=== PATIENT | female | born 1960 | race Caucasian/White ===

== ENCOUNTER 2018-02-06 07:40 | Day surgery (SDC) | payer BC ==
[2018-01-30 15:33] VITALS: BMI 18.9
[~2018-02-06 07:40] MED LIST: LACTATED RINGERS 1,000 ML IV SCH; LIDOCAINE 1% 20 ML VIAL (10MG/ML) FOR IV START INTRADERMA PRN
[2018-02-06 08:09] VITALS: RESP 16; TEMP 98.5
[2018-02-06 08:19] LABS: Glucose,Whole Blood 68 mg/dL (75-99)
--- NOTE | 2018-02-06 08:28 | P.GSHP ---
History of Present Illness H&P Date: 02/06/18 CHIEF COMPLAINT: GERD HISTORY OF PRESENT ILLNESS: The patient is a 58-year-old female who presents reports gastroesophageal reflux disease. Upper endoscopy was offered for further evaluation and management. PAST MEDICAL HISTORY: Please see list. PAST SURGICAL HISTORY: Please see list. MEDICATIONS: Please see list. ALLERGIES: Please see list. SOCIAL HISTORY: No illicit drug use FAMILY HISTORY: No reports of Crohn disease or ulcerative colitis. REVIEW OF ORGAN SYSTEMS: CONSTITUTIONAL: No reports of fevers or chills. GI: Denies any blood in stools or constipation. PHYSICAL EXAM: VITAL SIGNS: Stable GENERAL: Well-developed and pleasant in no acute distress. HEENT: No scleral icterus. Extraocular movements grossly intact. Moist buccal mucosa. NECK: Supple without lymphadenopathy. CHEST: Unlabored respirations. Equal bilateral excursions. CARDIOVASCULAR: Regular rate and rhythm. Distal 2+ pulses. ABDOMEN: Soft, nondistended. MUSCULOSKELETAL: No clubbing, cyanosis, or edema. ASSESSMENT: 1. Gastroesophageal reflux disease PLAN: 1. Recommend proceeding with an upper endoscopy Past Medical History Past Medical History: GERD/Reflux, Osteoarthritis (OA), Thyroid Disorder Additional Past Medical History / Comment(s): HYPOGLYCEMIA History of Any Multi-Drug Resistant Organisms: None Reported Past Surgical History: Breast Surgery, Cholecystectomy, Hysterectomy, Joint Replacement Additional Past Surgical History / Comment(s): LAP EXAM, ARTHROSCOPIC RIGHT KNEE , BILATERAL LEGS-OSTEOTOMY, RIGHT ELBOW, COLECTOMY Past Anesthesia/Blood Transfusion Reactions: Postoperative Nausea & Vomiting ( PONV) Smoking Status: Never smoker - Past Family History Father Family Medical History: Cancer Medications and Allergies Home Medications Medication Instructions Recorded Confirmed Type Levothyroxine Sodium [Synthroid] 50 mcg PO SUMOTUWETHFR 04/09/15 02/06/18 History cycloSPORINE 0.05% OPHTH SOLN 1 drops BOTH EYES BID 04/09/15 02/06/18 History [Restasis 0.05% Ophth Soln] Acetaminophen/Diphenhydramine 1 tab PO HS 01/30/18 02/06/18 History [Tylenol PM 500-25mg] Levothyroxine Sodium [Synthroid] 75 mcg PO SA 01/30/18 02/06/18 History Lutein 25 mg PO DAILY 01/30/18 02/06/18 History Allergies Allergy/AdvReac Type Severity Reaction Status Date / Time latex Allergy Swelling Verified 02/06/18 07:57 lubiprostone [From Amitiza] Allergy Rapid Verified 02/06/18 07:57 Heart Rate oxycodone HCl [From Percocet] Allergy Rash/Hives Verified 02/06/18 07:57 propranolol HCl Allergy Rash/Hives, Verified 02/06/18 07:57 [From Inderal LA] SWELLING OF FACE racephedrine Allergy Anaphylaxis Verified 02/06/18 07:57 celecoxib [From Celebrex] AdvReac GI BLEEDING Verified 02/06/18 07:57 meperidine HCl [From Demerol] AdvReac Abdominal Verified 02/06/18 07:57 Pain rofecoxib [From Vioxx] AdvReac GI BLEEDING Verified 02/06/18 07:57 valdecoxib [From Bextra] AdvReac GI BLEEDING Verified 02/06/18 07:57 Surgical - Exam Vital Signs Temp Pulse Resp BP Pulse Ox 98.5 F 80 16 136/78 100 02/06/18 08:04 02/06/18 08:04 02/06/18 08:04 02/06/18 08:04 02/06/18 08:04 Results - Labs Abnormal Lab Results - Last 24 Hours (Table) 02/06/18 Range/Units 08:12 POC Glucose (mg/dL) 68 L (75-99) mg/dL
[2018-02-06] MEDS ORDERED: PROPOFOL 10 MG/ML 20 ML VIAL IV ONE (08:54)
--- NOTE | 2018-02-06 09:24 | P.PCN ---
Date of Procedure: 02/06/18 Description of Procedure: PREOPERATIVE DIAGNOSIS: Gastroesophageal reflux disease. POSTOPERATIVE DIAGNOSIS: Gastritis. Gastroesophageal reflux disease. OPERATION: Esophagogastroduodenoscopy with biopsies along antrum. SURGEON: Nikki Parry MD ANESTHESIA: MAC. INDICATIONS: The patient is a 58-year-old female who presents with a history of reflux disease. Benefits and risks of the procedure were described. Informed consent was obtained. DESCRIPTION: The patient was brought into the endoscopy suite and laid in the left lateral decubitus position. An Olympus gastroscope was passed along the posterior oropharynx down to the distal esophagus where the squamocolumnar junction was encountered at 40 cm from the incisors. The stomach was entered and no bile reflux was found. Additional findings are listed below. Biopsies with cold forceps were obtained of the antrum. The first through third portion of the duodenum was examined and unremarkable. Retroflexion of the scope confirmed Hill grade 2 lower esophageal valve. The squamocolumnar junction demonstrated LA grade A erosive esophagitis. The stomach was desufflated. The patient tolerated the procedure well. FINDINGS: Squamocolumnar junction 40 cm from the incisors. Diaphragmatic hiatus at 40 cm. Hill grade 2 lower esophageal valve. LA grade A erosive esophagitis. No active duodenitis. Active gastritis with recent bleed, superficial RECOMMENDATIONS: Upper endoscopy as needed. Plan - Discharge Summary New Discharge Prescriptions: No Action Levothyroxine Sodium [Synthroid] 50 mcg PO SUMOTUWETHFR cycloSPORINE 0.05% OPHTH SOLN [Restasis 0.05% Ophth Soln] 1 drops BOTH EYES BID Levothyroxine Sodium [Synthroid] 75 mcg PO SA Acetaminophen/Diphenhydramine [Tylenol PM 500-25mg] 1 tab PO HS Lutein 25 mg PO DAILY Discharge Medication List Levothyroxine Sodium [Synthroid] 50 mcg PO SUMOTUWETHFR 04/09/15 [History] cycloSPORINE 0.05% OPHTH SOLN [Restasis 0.05% Ophth Soln] 1 drops BOTH EYES BID 04/09/15 [History] Acetaminophen/Diphenhydramine [Tylenol PM 500-25mg] 1 tab PO HS 01/30/18 [ History] Levothyroxine Sodium [Synthroid] 75 mcg PO SA 01/30/18 [History] Lutein 25 mg PO DAILY 01/30/18 [History] Follow up Appointment(s)/Referral(s): Nikki Parry MD [STAFF PHYSICIAN] - As Needed Patient Instructions/Handouts: *[facility] - (Anesthesia) Endoscopy Discharge Instructions, Gastritis (DC), Upper Endoscopy (DC)
[2018-02-06 09:45] VITALS: BP 112/78; PULSE 69
== END 2018-02-06 09:49 | disposition home or self-care (01) ==
LOC: ORWHC2ENDO 07:40
PROVIDERS: ATTEND Surgery Plastic and Reconstructive Surgery
DX: K22.10 Ulcer of esophagus without bleeding (principal); K29.50 Unspecified chronic gastritis without bleeding; K21.9 Gastro-esophageal reflux disease without esophagitis; M19.90 Unspecified osteoarthritis, unspecified site; E07.9 Disorder of thyroid, unspecified; Z79.890 Hormone replacement therapy; Z79.899 Other long term (current) drug therapy; Z88.5 Allergy status to narcotic agent; Z88.8 Allergy status to other drugs, medicaments and biological substances; Z88.6 Allergy status to analgesic agent; Z91.040 Latex allergy status
CPT/HCPCS: 88305; 43239; J2704

== ENCOUNTER 2019-05-30 11:48 | Day surgery (SDC) | payer BC ==
[2019-05-23 09:38] VITALS: BMI 19.6
--- NOTE | 2019-05-29 17:04 | P.GSHP ---
History of Present Illness H&P Date: 05/30/19 CHIEF COMPLAINT: Incisional hernia. HISTORY OF PRESENT ILLNESS: The patient is a 59-year-old female who presents with a history of swelling along the lower abdomen. Findings were consistent with possible incisional hernia. Now she presents for further evaluation and management. PAST MEDICAL HISTORY: Please see list. PAST SURGICAL HISTORY: Please see list. MEDICATIONS: Please see list. ALLERGIES: Please see list. SOCIAL HISTORY: No illicit drug use FAMILY HISTORY: No reports of Crohn disease or ulcerative colitis. REVIEW OF ORGAN SYSTEMS: CONSTITUTIONAL: No reports of fevers or chills. GI: Denies any blood in stools or constipation. PHYSICAL EXAM: VITAL SIGNS: Stable GENERAL: Well-developed pleasant female in no acute distress. HEENT: No scleral icterus. Extraocular movements grossly intact. Moist buccal mucosa. NECK: Supple without lymphadenopathy. CHEST: Unlabored respirations. Equal bilateral excursions. CARDIOVASCULAR: Regular rate and rhythm. Distal 2+ pulses. ABDOMEN: Soft, nondistended. Tender along the lower abdomen. MUSCULOSKELETAL: No clubbing, cyanosis, or edema. ASSESSMENT: 1. Ventral hernia. PLAN: 1. Recommend proceeding with robotic ventral hernia repair with mesh. 2. Benefits and risks of surgical intervention was discussed including possibility of open technique. 3. DVT prophylaxis. 4. Antibiotic prophylaxis. Past Medical History Past Medical History: GERD/Reflux, Osteoarthritis (OA), Thyroid Disorder Additional Past Medical History / Comment(s): HYPOGLYCEMIA, hx of colonic inertia History of Any Multi-Drug Resistant Organisms: None Reported Past Surgical History: Breast Surgery, Cholecystectomy, Hysterectomy, Orthopedic Surgery Additional Past Surgical History / Comment(s): LAP EXAM, ARTHROSCOPIC RIGHT KNEE, rotational BILATERAL LEGS-OSTEOTOMY, carlos alberto ELBOW, benign rt breast bx, COLECTOMY, bursectomy left hip Past Anesthesia/Blood Transfusion Reactions: Postoperative Nausea & Vomiting (PONV) Smoking Status: Never smoker - Past Family History Father Family Medical History: Cancer Medications and Allergies Home Medications Medication Instructions Recorded Confirmed Type cycloSPORINE 0.05% OPHTH SOLN 1 drops BOTH EYES BID 04/09/15 05/23/19 History [Restasis 0.05% Ophth Soln] C,E,Zinc,Copper 11/Mtsal0e/Lut 1 tab PO DAILY 05/23/19 05/23/19 History [Ocuvite Adult 50 Plus Softgel] Iron Polysaccharide Complex 150 mg PO DAILY 05/23/19 05/23/19 History [Ferrex 150] Levothyroxine Sodium [Euthyrox] 50 mcg PO SUMOTUWETHFR 05/23/19 05/23/19 History Levothyroxine Sodium [Euthyrox] 75 mcg PO SA 05/23/19 05/23/19 History Remfresh 1 tab PO HS 05/23/19 History Tretinoin Microspheres [Retin-A 1 applic TOPICAL DAILY 05/23/19 05/23/19 History Micro 0.1%] Allergies Allergy/AdvReac Type Severity Reaction Status Date / Time latex Allergy Swelling Verified 05/23/19 09:22 lubiprostone [From Amitiza] Allergy Rapid Verified 05/23/19 09:22 Heart Rate oxycodone HCl [From Percocet] Allergy Rash/Hives Verified 05/23/19 09:22 propranolol HCl Allergy Rash/Hives, Verified 05/23/19 09:22 [From Inderal LA] SWELLING OF FACE racephedrine Allergy Anaphylaxis Verified 05/23/19 09:22 celecoxib [From Celebrex] AdvReac GI BLEEDING Verified 05/23/19 09:22 meperidine HCl [From Demerol] AdvReac Abdominal Verified 05/23/19 09:22 Pain rofecoxib [From Vioxx] AdvReac GI BLEEDING Verified 05/23/19 09:22 valdecoxib [From Bextra] AdvReac GI BLEEDING Verified 05/23/19 09:22
[~2019-05-30 11:48] MED LIST changes: +ACETAMINOPHEN TAB 325 MG TAB PO STA; +DEXAMETHASONE SOD PHOSPHATE 10 MG/ML 1 ML VIAL IV ONE; +GABAPENTIN 300 MG CAP PO STA; +HEPARIN SODIUM,PORCINE 5,000 UNIT/ML 1 ML VIAL SQ ONE; +HYDROmorphone 0.5 MG/0.5 ML SYRINGE IVP PRN; +MIDAZOLAM 2 MG/2 ML VIAL IV PRN; +ONDANSETRON 4 MG/2 ML VIAL IVP ONE; +fentaNYL (PF) 50 MCG/ML 2 ML AMP IVP PRN
[2019-05-30 12:23] VITALS: RESP 16
[2019-05-30 12:26] LABS: Basophils % (A) 0 %; Eosinophils # (A) 0.1 k/uL (0-0.7); Eosinophils % (A) 1 %; HCT 42.6 % (34.0-46.0); HGB 14.1 gm/dL (11.4-16.0); Lymphocytes # (A) 2.2 k/uL (1.0-4.8); Lymphocytes % (A) 22 %; MCH 28.3 pg (25.0-35.0); MCHC 33.2 g/dL (31.0-37.0); MCV 85.2 fL (80.0-100.0); Mean Platelet Volume 8.7; Monocytes # (A) 0.6 k/uL (0-1.0); Monocytes % (A) 6 %; Neutrophils # (A) 6.9 k/uL (1.3-7.7); Neutrophils % (A) 69 %; Platelet Count 258 k/uL (150-450); RDW 14.5 % (11.5-15.5); WBC 9.9 k/uL (3.8-10.6)
[2019-05-30 12:37] LABS: Glucose,Whole Blood 90 mg/dL (75-99)
[2019-05-30 13:10] LABS: African American GFR (CKD) >90 (>60 ml/min/1.73 sqM); Anion Gap 7 mmol/L; Blood Urea Nitrogen 22 mg/dL (7-17); Carbon Dioxide 29 mmol/L (22-30); Chloride 102 mmol/L (98-107); Glucose 98 mg/dL (74-99); Non-African American GFR(CKD) 80 (>60 ml/min/1.73 sqM); Potassium 3.8 mmol/L (3.5-5.1); Sodium 138 mmol/L (137-145)
[2019-05-30] MEDS ORDERED: ROCURONIUM BROMIDE 10 MG/ML 10 ML VIAL IV ONE (14:24)
[2019-05-30] MEDS ORDERED: PROPOFOL 10 MG/ML 20 ML VIAL IV ONE (14:24)
[2019-05-30] MEDS ORDERED: LIDOCAINE 1% INJ 10MG/ML (20 ML MDV) ONE (14:24)
[2019-05-30] MEDS ORDERED: MIDAZOLAM 2 MG/2 ML VIAL ONE (14:24)
[2019-05-30] MEDS ORDERED: GLYCOPYRROLATE 0.2 MG/ML 2 ML VIAL ONE (14:24)
[2019-05-30] MEDS ORDERED: fentaNYL (PF) 50 MCG/ML 2 ML AMP ONE (14:24)
[2019-05-30] MEDS ORDERED: ROPIVACAINE 5 MG/ML 30 ML VIAL ONE (14:24)
[2019-05-30] MEDS ORDERED: NEOSTIGMINE 1 MG/ML 10 ML VIAL ONE (14:24)
[2019-05-30] MEDS ORDERED: LIDOCAINE 0.5%-EPI 1:200,000 50 ML VIAL ONE (14:24)
[2019-05-30] MEDS ORDERED: SUCCINYLCHOLINE CHLORIDE 100 MG/5 ML SYR IV ONE (14:24)
[2019-05-30] MEDS ORDERED: BUPIVACAIN-EPI 0.25%-1:200,000 30 ML VIAL SQ ONE (15:00)
[2019-05-30] MEDS ORDERED: LACTATED RINGERS 1,000 ML IV ONE (15:08)
[2019-05-30 15:38] VITALS: TEMP 96.8
--- NOTE | 2019-05-30 15:51 | P.OP ---
Date of Procedure: 05/30/19 Description of Procedure: SURGEON: NIKKI PARRY MD 1. RAYMUNDO MICHELLE PREOPERATIVE DIAGNOSES: 1. History of bilateral inguinal hernias 2. Personal history of multiple abdominal surgeries 3. Hypothyroidism 4. Colonic inertia status post subtotal colectomy 5. Gastroesophageal reflux disease 6. Postoperative nausea and vomiting 7. Iron deficiency anemia POSTOPERATIVE DIAGNOSES: 1. History of bilateral inguinal hernias 2. Personal history of multiple abdominal surgeries 3. Hypothyroidism 4. Colonic inertia status post subtotal colectomy 5. Gastroesophageal reflux disease 6. Postoperative nausea and vomiting 7. Iron deficiency anemia OPERATION: 1. Diagnostic laparoscopy Anesthesia: GETA, regional, local Estimated Blood Loss (ml): 1 Pathology: None COMPLICATIONS: None. Operative Findings: 1. No recurrent bilateral inguinal hernia 2. No ventral hernia 3. Small bowel unremarkable INDICATIONS: The patient is a 59-year-old female who presents with a personal history of multiple abdominal surgeries including previous inguinal hernias. She reports prematurely lifting a heavy object and had immediate bilateral lower abdominal strain with concern of recurrent hernias. Surgical intervention with laparoscopic versus robotic and open techniques were reviewed. Placement of mesh was also reviewed. Benefits and risks were thoroughly described. Informed consent was obtained. DESCRIPTION OF PROCEDURE: The patient was brought into the operating room and laid in supine position. After general induction, the abdomen had been prepped and draped in standard sterile fashion. Ioban draping was also placed. Prior to incision, a timeout protocol was confirmed with surgical team regarding the patient's name including procedures to be performed. The robot was primed prior to the procedure. A field block using local anesthetic was placed along the proposed port sites. Initial incision was made with an #11 blade along the left upper quadrant. A 0 degree 5 mm laparoscopic trocar entry was performed and insufflated. Diagnostic laparoscopy was performed demonstrating intact prior repair of the bilateral groin hernias. No recurrent inguinal hernias were identified. No new ventral hernias were identified. Small bowel was within normal limits without pathology and adequate peristalsis. No peritoneal adhesions or lesions were identified. A final endoscopic imaging was obtained. All instruments and pneumoperitoneum were evacuated from the abdominal cavity. At the end of the procedure, needle, sponge, and instrument count had been verified correct by surgical instrument maker. The patient was taken to the postanesthesia care unit in stable condition. Plan - Discharge Summary Discharge Rx Participant: No New Discharge Prescriptions: New Acetaminophen Tab [Tylenol Tab] 500 mg PO Q6H PRN #30 tablet PRN Reason: Pain No Action cycloSPORINE 0.05% OPHTH SOLN [Restasis 0.05% Ophth Soln] 1 drops BOTH EYES BID Tretinoin Microspheres [Retin-A Micro 0.1%] 1 applic TOPICAL DAILY Remfresh 1 tab PO HS Levothyroxine Sodium [Euthyrox] 75 mcg PO SA Levothyroxine Sodium [Euthyrox] 50 mcg PO SUMOTUWETHFR Iron Polysaccharide Complex [Ferrex 150] 150 mg PO DAILY C,E,Zinc,Copper 11/Qmtln8g/Lut [Ocuvite Adult 50 Plus Softgel] 1 tab PO DAILY Discharge Medication List cycloSPORINE 0.05% OPHTH SOLN [Restasis 0.05% Ophth Soln] 1 drops BOTH EYES BID 04/09/15 [History] C,E,Zinc,Copper 11/Kcafz5l/Lut [Ocuvite Adult 50 Plus Softgel] 1 tab PO DAILY 05/23/19 [History] Iron Polysaccharide Complex [Ferrex 150] 150 mg PO DAILY 05/23/19 [History] Levothyroxine Sodium [Euthyrox] 50 mcg PO SUMOTUWETHFR 05/23/19 [History] Levothyroxine Sodium [Euthyrox] 75 mcg PO SA 05/23/19 [History] Remfresh 1 tab PO HS 05/23/19 [History] Tretinoin Microspheres [Retin-A Micro 0.1%] 1 applic TOPICAL DAILY 05/23/19 [History] Acetaminophen Tab [Tylenol Tab] 500 mg PO Q6H PRN #30 tablet 05/30/19 [Rx] Follow up Appointment(s)/Referral(s): Nikki Parry MD [STAFF PHYSICIAN] - 06/05/19 (FOLLOW UP WITH DR PARRY ON . CALL AND MAKE THAT APPOINTMENT ON Sunday FOR APPT. ON ) Patient Instructions/Handouts: *[facility] - Scopalamine Patch Instructions, Exploratory Laparoscopy (IP) Activity/Diet/Wound Care/Special Instructions: May shower. Diet as tolerated. Use Tylenol and ibuprofen scheduled for the next 24-48 hours for best pain relief. Use ice along incisions for the today to prevent swelling. Discharge Disposition: HOME SELF-CARE
--- NOTE | 2019-05-30 16:18 | P.ANPRN ---
Procedure Note - Anesthesia - Nerve Block Performed Bilateral Rectus Abdominis Single Time Out Performed: Yes Date of Procedure: 05/30/19 Procedure Start Time: 14:05 Location of Patient: PreOp Indication: Acute Post-Operative Pain, Requested by Surgeon Specifically requested for management of pain by DrTimothy: Nikki Parry Sedation Type: Sedate with meaningful contact maintained Preparation: Sterile Prep Position: Supine Catheter: None Needle Types: Pajunk Needle Gauge: 20 Ultrasound used to visualize needle placement: Yes Ultrasound used to observe medication spread: Yes Injectate: Other (see comment) (0.25% ropivacaine/0.5% lidocaine 25 mL each side) Adjunct: Epinephrine (see comment for dilution ratio) (1/200,000) Blood Aspirated: No Pain Paresthesia on Injection Noted: No Resistance on Injection: Normal Image Stored and Saved: Yes Events: Uneventful and Well Tolerated
[2019-05-30 16:56] VITALS: PULSE 88
[2019-05-30 16:59] VITALS: BP 129/68
[2019-05-30] MEDS ORDERED: ONDANSETRON ODT 4 MG TAB PO ONE (17:27)
[2019-05-30] MEDS ORDERED: SCOPOLAMINE 1.5MG/72HR PATCH TRANSDERM ONE (17:27)
== END 2019-05-30 17:55 | disposition home or self-care (01) ==
LOC: OR 11:48
PROVIDERS: ATTEND Surgery Plastic and Reconstructive Surgery
DX: S39.011A Strain of muscle, fascia and tendon of abdomen, initial encounter (principal); E03.9 Hypothyroidism, unspecified; D50.9 Iron deficiency anemia, unspecified; K21.9 Gastro-esophageal reflux disease without esophagitis; M19.90 Unspecified osteoarthritis, unspecified site; Z90.49 Acquired absence of other specified parts of digestive tract; Z79.890 Hormone replacement therapy; Z87.19 Personal history of other diseases of the digestive system; Z79.899 Other long term (current) drug therapy; Z91.040 Latex allergy status; Z88.8 Allergy status to other drugs, medicaments and biological substances; Z88.5 Allergy status to narcotic agent; Z88.6 Allergy status to analgesic agent; Z90.710 Acquired absence of both cervix and uterus; Z88.2 Allergy status to sulfonamides; Z98.890 Other specified postprocedural states; Z80.9 Family history of malignant neoplasm, unspecified; X50.0XXA Overexertion from strenuous movement or load, initial encounter
CPT/HCPCS: 64488; 80048; 85025; 49320; J2250; J1644; J1100; J2710; J0690; J2405; J2001; J3010; J2795; J0330; J2704

== ENCOUNTER → 2024-05-21 | Outpatient (CLI) | payer BC ==
--- NOTE | 2024-05-21 10:57 | FL ---
EXAMINATION TYPE: FL barium swallow DATE OF EXAM: 05/21/2024 8:51 AM COMPARISON: . Chest radiograph from same day. CLINICAL INDICATION:Female, 64 years old with history of R13.10 Dysphagia; [facility], TECHNIQUE: The procedure was explained and patient history elicited. All patient questions were ans wered prior to start of procedure. Multiple spot fluoroscopic images of the esophagus were obtained a fter the oral ingestion of effervescent crystals and liquid barium as the contrast agent. Fluoroscopic time:1 min 1 sec Fluoroscopic images:0 Radiographs taken: 174 DAP: NOT REPORTED [id number] FINDINGS: The esophagus demonstrates normal primary and secondary peristalsis. Tertiary contractions are seen w ith delayed emptying of the esophageal contents. The esophageal mucosa is smooth without evidence of focal stricture, ulceration, or abnormal outpouching. No gastroesophageal reflux disease was identif ied IMPRESSION: Esophageal dysmotility. [facility], , 05/21/2024 10:55 AM
== END | disposition home or self-care (01) ==
LOC: RADFLMAIN 08:14
PROVIDERS: ATTEND Surgery Plastic and Reconstructive Surgery
DX: K22.4 Dyskinesia of esophagus (principal); R13.10 Dysphagia, unspecified
CPT/HCPCS: 74220

== ENCOUNTER 2024-07-23 07:49 | Day surgery (SDC) | payer BC ==
[2024-07-22 09:34] VITALS: BMI 19.7
[2024-07-23 08:14] VITALS: RESP 16; TEMP 97.6
[2024-07-23] MEDS: IV FLUID CONTINUATION 1,000 ML IV ONE (08:20)
[2024-07-23] MEDS: LACTATED RINGERS 1,000 ML IV SCH (08:20)
[2024-07-23] MEDS: LIDOCAINE 1% (10MG/ML) FOR IV START INTRADERMA STA (08:20)
[2024-07-23] MEDS ORDERED: PROPOFOL 10 MG/ML 20 ML VIAL IV ONE (08:36)
[2024-07-23] MEDS ORDERED: LIDOCAINE 1% INJ 10MG/ML (20 ML MDV) ONE (08:36)
--- NOTE | 2024-07-23 08:40 | P.GSHP ---
History of Present Illness H&P Date: 07/23/24 CHIEF COMPLAINT: GERD HISTORY OF PRESENT ILLNESS: The patient is a 64-year-old female who presents reports gastroesophageal reflux disease. Upper endoscopy was offered for further evaluation and management. PAST MEDICAL HISTORY: Please see list. PAST SURGICAL HISTORY: Please see list. MEDICATIONS: Please see list. ALLERGIES: Please see list. SOCIAL HISTORY: No illicit drug use FAMILY HISTORY: No reports of Crohn disease or ulcerative colitis. REVIEW OF ORGAN SYSTEMS: CONSTITUTIONAL: No reports of fevers or chills. GI: Denies any blood in stools or constipation. PHYSICAL EXAM: VITAL SIGNS: Stable GENERAL: Well-developed and pleasant in no acute distress. HEENT: No scleral icterus. Extraocular movements grossly intact. Moist buccal mucosa. NECK: Supple without lymphadenopathy. CHEST: Unlabored respirations. Equal bilateral excursions. CARDIOVASCULAR: Regular rate and rhythm. Distal 2+ pulses. ABDOMEN: Soft, nondistended. MUSCULOSKELETAL: No clubbing, cyanosis, or edema. ASSESSMENT: 1. Gastroesophageal reflux disease PLAN: 1. Recommend proceeding with an upper endoscopy Past Medical History Past Medical History: GERD/Reflux, Osteoarthritis (OA), Thyroid Disorder Additional Past Medical History / Comment(s): HYPOGLYCEMIA, increased acid reflux- constant clearing of throat History of Any Multi-Drug Resistant Organisms: None Reported Past Surgical History: Breast Surgery, Cholecystectomy, Hysterectomy, Orthopedic Surgery Additional Past Surgical History / Comment(s): LAP EXAM, ARTHROSCOPIC RIGHT KNEE, rotational BILATERAL LEGS-OSTEOTOMY, carlos alberto ELBOW, benign rt breast bx, COLECTOMY, bursectomy left hip, right middle trigger finger release in 05/2024, 02/2022 Left hip IT band surgery Past Anesthesia/Blood Transfusion Reactions: Postoperative Nausea & Vomiting (PONV) Smoking Status: Never smoker - Past Family History Father Family Medical History: Cancer Medications and Allergies Home Medications Medication Instructions Recorded Confirmed Type Levothyroxine Sodium [Euthyrox] 50 mcg PO MOFR 05/23/19 07/22/24 History Levothyroxine Sodium [Euthyrox] 75 mcg PO SUTUWETHSA 05/23/19 07/22/24 History Acetaminophen Tab [Tylenol Tab] 500 mg PO Q6H PRN #30 tablet 05/30/19 07/22/24 Rx Calcium Carbonate/Vitamin D3 1,500 tab PO DAILY 07/22/24 07/22/24 History [Calcium 500 mg Chewable Tablet] Cholecalciferol (Vitamin D3) 1 tab PO DAILY 07/22/24 07/22/24 History [Vitamin D3 (3000 Iu)] Fezolinetant [Veozah] 45 mg PO DAILY 07/22/24 07/22/24 History Mv-Mn/B.coag/B.subtilis/Inulin 1 tab PO DAILY 07/22/24 07/22/24 History [Culturelle Probiotic-Mv Gummy] Omeprazole [PriLOSEC] 20 mg PO DAILY 07/22/24 07/22/24 History cycloSPORINE 0.05% OPHTH SOLN 1 applicator BOTH EYES BID 07/22/24 07/22/24 History [Restasis] Allergies Allergy/AdvReac Type Severity Reaction Status Date / Time latex Allergy Swelling Verified 07/23/24 08:09 lubiprostone [From Amitiza] Allergy Rapid Verified 07/23/24 08:09 Heart Rate oxycodone HCl [From Percocet] Allergy Rash/Hives Verified 07/23/24 08:09 propranolol HCl Allergy Rash/Hives, Verified 07/23/24 08:09 [From Inderal LA] SWELLING OF FACE racephedrine Allergy Anaphylaxis Verified 07/23/24 08:09 celecoxib [From Celebrex] AdvReac GI BLEEDING Verified 07/23/24 08:09 meperidine HCl [From Demerol] AdvReac Abdominal Verified 07/23/24 08:09 Pain nickel AdvReac Rash/Hives Verified 07/23/24 08:09 rofecoxib [From Vioxx] AdvReac GI BLEEDING Verified 07/23/24 08:09 valdecoxib [From Bextra] AdvReac GI BLEEDING Verified 07/23/24 08:09 Surgical - Exam Vital Signs Temp Pulse Resp BP Pulse Ox 97.6 F 88 16 133/72 100 07/23/24 08:12 07/23/24 08:12 07/23/24 08:12 07/23/24 08:12 07/23/24 08:12
--- NOTE | 2024-07-23 09:02 | P.PCN ---
Date of Procedure: 07/23/24 Description of Procedure: PREOPERATIVE DIAGNOSIS: Gastroesophageal reflux disease Dysphagia POSTOPERATIVE DIAGNOSIS: Esophageal dysmotility Esophageal stricture Gastroesophageal reflux disease with erosive esophagitis Gastritis Upper esophageal stenosis OPERATION: Esophagogastroduodenoscopy with rigid dilator over the guidewire 54 Fr with dilation Esophagogastroduodenoscopy with cold forceps biopsies stomach/antrum, esophagus, duodenum SURGEON: Nikki Parry MD ANESTHESIA: MAC. INDICATIONS: The patient is a 64-year-old female who presents with dysphagia and protracted gastroesophageal reflux disease. Benefits and risks of the procedure were described. Informed consent was obtained. DESCRIPTION: The patient was brought into the endoscopy suite and laid in the left lateral decubitus position. After a timeout was confirmed, the procedure was initiated. An Olympus gastroscope was passed into the posterior oropharynx where an upper esophageal stenosis was identified. The scope was passed down to the distal esophagus. To address the upper esophageal stenosis, rigid dilator over guidewire was selected. Next using an Syrian rigid dilator, a guidewire was placed through the gastroscope. Next the scope was withdrawn. A 54-Albanian rigid Syrian dilator was passed carefully along the posterior oropharynx to 45 cm and left in place for 2-3 minutes stretch. The dilator was withdrawn including the guidewire. The scope was reentered along the posterior oropharynx with no findings of full- thickness tear of the upper esophageal sphincter. Additional findings below. Within the stomach, early chronic gastritis identified along the antrum of the stomach with cold forceps biopsies obtained. Biopsies were obtained of the duodenum. The lower esophageal valve was evaluated with Hill grade 2 lower esophageal valve. LA grade B erosive esophagitis was identified with biopsies obtained. No full-thickness injury was encountered with bleeding along the posterior oropharynx, upper esophageal sphincter. The GI tract was desufflated. The patient tolerated the procedure well. FINDINGS: Upper esophageal stenosis dilated 54-Albanian rigid dilator Diaphragmatic hiatus at 40 cm from the incisors Squamocolumnar junction 40 cm from the incisors. Early gastritis along the gastric body, antrum and fundus cold forceps biopsies obtained Duodenum with biopsies obtained LA grade B erosive esophagitis, biopsies obtained Hill grade 2 lower esophageal valve. RECOMMENDATIONS: Omeprazole 40 mg daily for 2 weeks Repeat upper endoscopy 4 to 6 weeks Plan - Discharge Summary Discharge Rx Participant: No New Discharge Prescriptions: New Omeprazole [PriLOSEC] 40 mg PO DAILY #14 cap Continue Levothyroxine Sodium [Euthyrox] 75 mcg PO SUTUWETHSA Levothyroxine Sodium [Euthyrox] 50 mcg PO MOFR Acetaminophen Tab [Tylenol] 500 mg PO Q6H PRN #30 tablet PRN Reason: Pain Mv-Mn/B.coag/B.subtilis/Inulin [Culturelle Probiotic-Mv Gummy] 1 tab PO DAILY Calcium Carbonate/Vitamin D3 [Calcium 500 mg Chewable Tablet] 1,500 tab PO DAILY Cholecalciferol (Vitamin D3) [Vitamin D3 (3000 Iu)] 1 tab PO DAILY cycloSPORINE 0.05% OPHTH SOLN [Restasis] 1 applicator BOTH EYES BID Fezolinetant [Veozah] 45 mg PO DAILY Discontinued Omeprazole [PriLOSEC] 20 mg PO DAILY Discharge Medication List Levothyroxine Sodium [Euthyrox] 50 mcg PO MOFR 05/23/19 [History] Levothyroxine Sodium [Euthyrox] 75 mcg PO SUTUWETHSA 05/23/19 [History] Acetaminophen Tab [Tylenol] 500 mg PO Q6H PRN #30 tablet 05/30/19 [Rx] Calcium Carbonate/Vitamin D3 [Calcium 500 mg Chewable Tablet] 1,500 tab PO DAILY 07/22/24 [History] Cholecalciferol (Vitamin D3) [Vitamin D3 (3000 Iu)] 1 tab PO DAILY 07/22/24 [History] Fezolinetant [Veozah] 45 mg PO DAILY 07/22/24 [History] Mv-Mn/B.coag/B.subtilis/Inulin [Culturelle Probiotic-Mv Gummy] 1 tab PO DAILY 07/22/24 [History] cycloSPORINE 0.05% OPHTH SOLN [Restasis] 1 applicator BOTH EYES BID 07/22/24 [ History] Omeprazole [PriLOSEC] 40 mg PO DAILY #14 cap 07/23/24 [Rx] Follow up Appointment(s)/Referral(s): Nikki Parry MD [STAFF PHYSICIAN] - 08/19/24 11:00 am Patient Instructions/Handouts: Esophageal Dilation (GEN) Activity/Diet/Wound Care/Special Instructions: Soft foods diets for 72 hours. Avoid sharp foods for 3 days. Discharge Disposition: HOME SELF-CARE
[2024-07-23 09:22] VITALS: BP 116/76; PULSE 75
== END 2024-07-23 10:06 | disposition home or self-care (01) ==
LOC: ORWHC2ENDO 07:49
PROVIDERS: ATTEND Surgery Plastic and Reconstructive Surgery
DX: K31.9 Disease of stomach and duodenum, unspecified (principal); K22.4 Dyskinesia of esophagus; K22.2 Esophageal obstruction; K21.00 Gastro-esophageal reflux disease with esophagitis, without bleeding; K29.70 Gastritis, unspecified, without bleeding; M19.90 Unspecified osteoarthritis, unspecified site; E07.9 Disorder of thyroid, unspecified; Z88.5 Allergy status to narcotic agent; Z88.6 Allergy status to analgesic agent; Z90.49 Acquired absence of other specified parts of digestive tract; Z90.710 Acquired absence of both cervix and uterus; Z91.040 Latex allergy status; Z79.890 Hormone replacement therapy; Z79.899 Other long term (current) drug therapy; Z91.048 Other nonmedicinal substance allergy status
CPT/HCPCS: 88305; 43239; 43248; J2003; J2704; 43244